=== PATIENT | female | born 1955 | race African-American/Black ===

== ENCOUNTER 2019-09-05 05:43 | Inpatient (IN) ==
[2019-09-05] MEDS ORDERED: ceFAZolin 2,000 MG in PREMIX 1 EACH IV ONE (06:00)
[2019-09-05] MEDS ORDERED: VANCOMYCIN INJ 1,000 MG in SODIUM CHLORIDE 0.9% 250 ML IV ONE (06:00)
[2019-09-05] MEDS ORDERED: VANCOMYCIN 1,000 MG VIAL ONE (06:03)
[2019-09-05] MEDS ORDERED: DEXAMETHASONE 4 MG/1 ML VIAL ONE (06:25)
[2019-09-05] MEDS ORDERED: ROPIVACAINE 0.5% 30 ML VIAL ONE (06:25)
[2019-09-05] MEDS ORDERED: LACTATED RINGERS 1,000 ML IV SCH (06:30)
[2019-09-05] MEDS ORDERED: FAMOTIDINE 20 MG TABLET PO ONE (06:32)
[2019-09-05] MEDS ORDERED: DIAZEPAM 5 MG TABLET PO ONE (06:32)
[2019-09-05] MEDS ORDERED: GABAPENTIN 400 MG CAPSULE PO ONE (06:32)
[2019-09-05] MEDS ORDERED: ACETAMINOPHEN 500 MG TABLET PO ONE (06:32)
[2019-09-05] MEDS ORDERED: BACITRACIN OINT 0.9 GM PACK TOP ONE (06:53)
[2019-09-05] MEDS ORDERED: ALBUTEROL 2.5 MG/3 ML NEB RESP TX PRN (07:19)
[2019-09-05] MEDS ORDERED: DEXTROSE 50% 25 GM/50 ML VIAL IV PRN (07:20)
[2019-09-05] MEDS ORDERED: GLUCAGON 1 MG VIAL IM PRN (07:20)
[2019-09-05] MEDS ORDERED: HYDROmorphone 2 MG/1 ML VIAL IV PRN ×2 (07:21→08:55)
[2019-09-05] MEDS ORDERED: diphenhydrAMINE CAP 25 MG CAPSULE PO PRN (07:21)
[2019-09-05] MEDS ORDERED: MAGNESIUM HYDROXIDE SUSP 30 ML UDCUP PO PRN (07:21)
[2019-09-05] MEDS: LACTATED RINGERS 1,000 ML IV SCH ×3 (07:32→21:50)
[2019-09-05] MEDS ORDERED: HYDROmorphone 2 MG/1 ML VIAL ONE (07:52)
[2019-09-05] MEDS ORDERED: ALBUTEROL 2.5 MG/3 ML NEB RESP TX ONE ×2 (08:42→08:55)
[2019-09-05] MEDS ORDERED: INSULIN REGULAR 100 UNIT/ML ONE (08:50)
[2019-09-05] MEDS ORDERED: diphenhydrAMINE 50 MG/1 ML VIAL IV PRN (08:55)
[2019-09-05] MEDS ORDERED: PROMETHAZINE INJ 25 MG in SODIUM CHLORIDE 0.9% 50 ML IV PRN (08:55)
[2019-09-05] MEDS ORDERED: ONDANSETRON 4 MG/2 ML VIAL IV PRN (08:55)
[2019-09-05] MEDS: MEPERIDINE 25 MG/1 ML VIAL IV PRN ×2 (09:00→10:05)
[2019-09-05] MEDS ORDERED: KETOROLAC 30 MG/1 ML VIAL ONE (09:01)
[2019-09-05] MEDS: INSULIN LISPRO 100 UNIT/ML SUBCUT SCH ×4 (09:08→21:45)
[2019-09-05] MEDS: KETOROLAC 30 MG/1 ML VIAL IV SCH ×3 (09:09→18:35)
[2019-09-05] MEDS ORDERED: KETAMINE 500 MG/10 ML VIAL ONE (09:18)
[2019-09-05] MEDS ORDERED: SEVOFLURANE 1 UNIT/15 MINUTE INH ONE (09:18)
[2019-09-05] MEDS ORDERED: propofoL 200 MG/20 ML VIAL IV ONE (09:18)
[2019-09-05] MEDS ORDERED: fentaNYL 100 MCG/2 ML VIAL ONE (09:18)
[2019-09-05] MEDS ORDERED: LIDOCAINE 2% 5 ML VIAL ONE (09:18)
[2019-09-05] MEDS ORDERED: SODIUM CHLORIDE 0.9% 100 ML IV ONE (09:19)
[2019-09-05] MEDS ORDERED: TRANEXAMIC ACID 1,000 MG/10 ML VIAL ONE (09:19)
[2019-09-05] MEDS ORDERED: SUCCINYLCHOLINE 200 MG/10 ML VIAL ONE (09:19)
[2019-09-05] MEDS ORDERED: SODIUM CHLORIDE 0.9% 250 ML IV ONE (09:19)
[2019-09-05] MEDS ORDERED: HYDROCORTISONE 100 MG VIAL ONE (09:19)
[2019-09-05] MEDS ORDERED: ESMOLOL 100 MG/10 ML VIAL IV ONE (09:19)
[2019-09-05] MEDS ORDERED: ACETAMINOPHEN 1,000 MG/100 ML VIAL IV ONE (09:19)
[2019-09-05] MEDS ORDERED: MIDAZOLAM 2 MG/2 ML VIAL ONE (09:19)
[2019-09-05] MEDS ORDERED: LACTATED RINGERS 1,000 ML IV ONE (09:19)
[2019-09-05] MEDS ORDERED: LABETALOL 100 MG/20 ML VIAL IV ONE (09:35)
[2019-09-05] MEDS ORDERED: hydrALAZINE 20 MG/1 ML VIAL ONE (09:46)
[2019-09-05] MEDS ORDERED: hydrALAZINE 20 MG/1 ML VIAL IV ONE (09:49)
[2019-09-05] MEDS ORDERED: PROMETHAZINE 25 MG/1 ML VIAL ONE (10:03)
[2019-09-05] MEDS ORDERED: MEPERIDINE 25 MG/1 ML VIAL ONE (10:03)
[2019-09-05] MEDS: DOCUSATE SODIUM 100 MG CAPSULE PO SCH ×2 (11:58→21:45)
[2019-09-05] MEDS: sulfaSALAzine 500 MG TABLET PO SCH ×2 (11:58→21:46)
[2019-09-05] MEDS: POTASSIUM CHLORIDE 10 MEQ TABLET PO SCH ×2 (11:58→21:46)
[2019-09-05] MEDS: PANTOPRAZOLE 40 MG TABLET PO SCH (11:58)
[2019-09-05] MEDS: ceFAZolin 2,000 MG in PREMIX 1 EACH IV SCH ×2 (11:58→18:35)
[2019-09-05] MEDS: FOLIC ACID 1 MG TABLET PO SCH (11:59)
[2019-09-05] MEDS: predniSONE 5 MG TABLET PO SCH (11:59)
[2019-09-05] MEDS: BACLOFEN 10 MG TABLET PO SCH ×2 (15:26→21:46)
[2019-09-05] MEDS: HYDROmorphone 2 MG/1 ML VIAL IV PRN (15:27)
[2019-09-05] MEDS: metFORMIN 500 MG TABLET PO SCH (16:30)
[2019-09-05] MEDS: GABAPENTIN 300 MG CAPSULE PO SCH (21:45)
[2019-09-05] MEDS: traZODone 50 MG TABLET PO SCH (21:46)
[2019-09-05] MEDS: CETIRIZINE 10 MG TABLET PO SCH (21:46)
[2019-09-05] MEDS: NORTRIPTYLINE 10 MG CAPSULE PO SCH (21:56)
[2019-09-05] MEDS: oxyCODONE/ACETAMINOPHEN 5-325 MG TABLET PO PRN (23:45)
[2019-09-06] MEDS: KETOROLAC 30 MG/1 ML VIAL IV SCH (00:46)
[2019-09-06] MEDS: oxyCODONE/ACETAMINOPHEN 5-325 MG TABLET PO PRN ×3 (05:17→12:54)
[2019-09-06] MEDS: FONDAPARINUX 2.5 MG/0.5 ML SYRINGE SUBCUT SCH (05:18)
[2019-09-06 06:53] LABS: Basophils % 0.4 % (0.0-0.8); Eosinophils % 0.4 % (0.00-10.9); Hematocrit 32.3 VOL% (35.7-47.0); Hemoglobin 10.5 GM/DL (12.0-16.0); Immature Granulocytes % 0.4 %; Immature Granulocytes Absolute 0.03 #; Lymphocytes # 1.7 10*3/uL (1.4-4.0); Lymphocytes % 22.4 % (21.3-54.2); Mean Corpuscular HGB Conc 32.5 GM/DL (32-36); Mean Corpuscular Volume 89.7 FL (87-102); Mean Platelet Volume 11.8 FL (9.6-12.0); Monocytes % 10.4 % (1.7-12.7); Platelet Count 245 T/CUMM (130-400); Red Cell Distribution Width 13.8 % (9.3-17.3); White Blood Count 7.8 T/CUMM (4-12)
[2019-09-06 07:19] LABS: Calcium 8.6 MG/DL (8.5-10.1); Osmolality,Calculated 279.4 MOS/KG (273-304)
[2019-09-06] MEDS ORDERED: ACETAMINOPHEN 325 MG TABLET PO PRN (07:22)
[2019-09-06] MEDS: metFORMIN 500 MG TABLET PO SCH ×2 (08:04→16:58)
[2019-09-06] MEDS: INSULIN LISPRO 100 UNIT/ML SUBCUT SCH ×4 (08:04→21:23)
[2019-09-06] MEDS: LACTATED RINGERS 1,000 ML IV SCH (08:21)
[2019-09-06] MEDS: predniSONE 5 MG TABLET PO SCH (08:53)
[2019-09-06] MEDS: DOCUSATE SODIUM 100 MG CAPSULE PO SCH ×2 (08:53→21:23)
[2019-09-06] MEDS: FOLIC ACID 1 MG TABLET PO SCH (08:53)
[2019-09-06] MEDS: sulfaSALAzine 500 MG TABLET PO SCH ×2 (08:53→21:23)
[2019-09-06] MEDS: PANTOPRAZOLE 40 MG TABLET PO SCH (08:53)
[2019-09-06] MEDS: POTASSIUM CHLORIDE 10 MEQ TABLET PO SCH ×2 (08:53→21:24)
[2019-09-06] MEDS: BACLOFEN 10 MG TABLET PO SCH ×3 (08:53→21:24)
[2019-09-06] MEDS: HYDROmorphone 2 MG/1 ML VIAL IV PRN (10:11)
[2019-09-06] MEDS: ONDANSETRON 4 MG/2 ML VIAL IV PRN ×2 (11:03→15:30)
[2019-09-06] MEDS: CETIRIZINE 10 MG TABLET PO SCH (21:24)
[2019-09-06] MEDS: traZODone 50 MG TABLET PO SCH (21:24)
[2019-09-06] MEDS: GABAPENTIN 300 MG CAPSULE PO SCH (21:24)
[2019-09-06] MEDS: NORTRIPTYLINE 10 MG CAPSULE PO SCH (22:38)
[2019-09-07] MEDS: oxyCODONE/ACETAMINOPHEN 5-325 MG TABLET PO PRN (04:25)
[2019-09-07] MEDS: FONDAPARINUX 2.5 MG/0.5 ML SYRINGE SUBCUT SCH (05:53)
[2019-09-07 06:08] LABS: Basophils % 0.4 % (0.0-0.8); Eosinophils # 0.1 10*3/uL (0.0-0.87); Eosinophils % 0.7 % (0.00-10.9); Hematocrit 33.5 VOL% (35.7-47.0); Hemoglobin 10.9 GM/DL (12.0-16.0); Immature Granulocytes % 0.7 %; Immature Granulocytes Absolute 0.05 #; Lymphocytes # 1.7 10*3/uL (1.4-4.0); Lymphocytes % 22.4 % (21.3-54.2); Mean Corpuscular HGB Conc 32.5 GM/DL (32-36); Mean Corpuscular Volume 90.1 FL (87-102); Mean Platelet Volume 11.5 FL (9.6-12.0); Monocytes % 9.6 % (1.7-12.7); Neutrophils % 66.2 % (38.7-73.9); Platelet Count 233 T/CUMM (130-400); Red Blood Count 3.72 MC/CUMM (3.8-5.5); Red Cell Distribution Width 13.5 % (9.3-17.3); White Blood Count 7.4 T/CUMM (4-12)
[2019-09-07] MEDS: FOLIC ACID 1 MG TABLET PO SCH (08:22)
[2019-09-07] MEDS: INSULIN LISPRO 100 UNIT/ML SUBCUT SCH (08:22)
[2019-09-07] MEDS: POTASSIUM CHLORIDE 10 MEQ TABLET PO SCH (08:23)
[2019-09-07] MEDS: predniSONE 5 MG TABLET PO SCH (08:23)
[2019-09-07] MEDS: DOCUSATE SODIUM 100 MG CAPSULE PO SCH (08:23)
[2019-09-07] MEDS: sulfaSALAzine 500 MG TABLET PO SCH (08:23)
[2019-09-07] MEDS: BACLOFEN 10 MG TABLET PO SCH (08:23)
[2019-09-07] MEDS: PANTOPRAZOLE 40 MG TABLET PO SCH (08:23)
[2019-09-07] MEDS: metFORMIN 500 MG TABLET PO SCH (08:23)
[2019-09-07 08:29] VITALS: BP 133/74
== END 2019-09-07 10:20 | disposition home health service (06) | DRG 470 ==
LOC: N.OR 05:43 → N.SDSINP 05:45 → N.3E 08:35
PROVIDERS: ADMIT Orthopaedic Surgery; ATTEND Orthopaedic Surgery